=== PATIENT | male | born 1945 | race Hispanic/Latino ===

== ENCOUNTER → 2017-04-03 | Outpatient (CLI) | payer OTHER ==
[~2017-04-03] MED LIST: AMLO2.5T PO; ASPI-1181 PO; BRIM5DRO4 OU; CARV25TA PO; CHOL378P PO; CLOP75TA32 PO; ENAL20TA PO; EZET10 PO; FISH1CAP49 PO; ISOS60TA4 PO; LATA2.5D2 OU; LEVO75TA10 PO; PANT40TA25 PO; TYL3 PO
== END ==
LOC: SHCH 11:57
PROVIDERS: ATTEND Internal Medicine Cardiovascular Disease
DX: I50.9 Heart failure, unspecified (principal)
CPT/HCPCS: 93306

== ENCOUNTER → 2018-09-15 | Outpatient (CLI) | payer OTHER ==
[~2018-09-15] VITALS: Ht 170.2 cm; Wt 101.2 kg
[~2018-09-15] MED LIST changes: -AMLO2.5T PO; +AMLO2.5T4 PO; -EZET10 PO; +EZET10TA13 PO; +REGADENOSON 0.4 MG/5 ML PF SYG IVP SCH
== END | disposition home or self-care (01) ==
LOC: SHCH 08:11
PROVIDERS: ATTEND Internal Medicine Cardiovascular Disease
DX: I25.89 Other forms of chronic ischemic heart disease (principal); I21.19 ST elevation (STEMI) myocardial infarction involving other coronary artery of inferior wall
CPT/HCPCS: 78452; 93017; 96374; A9500 ×2; J2785

== ENCOUNTER 2019-02-20 05:47 | Day surgery (SDC) | payer OTHER ==
[2019-02-17 09:13] VITALS: BP 124/67
[2019-02-17 09:27] LABS: BASOPHILS % (AUTO) 0.1 % (0.0-5.0); EOSINOPHILS % (AUTO) 15.6 % (0.0-8.0); HEMATOCRIT 39.2 % (42-54); LYMPHOCYTES % (AUTO) 20.9 % (21.0-51.0); MEAN CORPUSCULAR HEMOGLOBIN 32.1 pg (27.0-33.0); MEAN CORPUSCULAR HGB CONC 32.4 g/dL (32.0-36.0); MONOCYTES % (AUTO) 7.8 % (3.0-13.0); NEUTROPHILS % (AUTO) 55.5 % (40.0-77.0); PLATELET COUNT (AUTO) 157 K/uL (130-400); RED BLOOD CELL COUNT(AUTO) 3.96 MIL/uL (4.50-6.20); RED CELL DISTRIBUTION WIDTH 12.3 % (11.0-15.5); WHITE BLOOD COUNT (AUTO) 7.2 K/uL (4.8-10.8)
[2019-02-17 09:31] LABS: APPEARANCE,URINE Clear (CLEAR); BILIRUBIN,URINE Negative (NEGATIVE); COLOR,URINE Yellow (YELLOW); GLUCOSE, URINE (UA) Negative (NEGATIVE); KETONES,URINE Negative (NEGATIVE); LEUKOCYTE ESTERASE ,URINE Negative (NEGATIVE); NITRATE,URINE Negative (NEGATIVE); OCCULT BLOOD,URINE Negative (NEGATIVE); PH,URINE 5.5 (5.0-8.0); PROTEIN,URINE Negative (NEGATIVE)
[2019-02-17 09:36] LABS: CREATININE 1.4 mg/dL (0.5-1.5); POTASSIUM 4.4 mmol/L (3.5-5.1)
[2019-02-17 09:45] LABS: INR 1.07 (0.85-1.15); PARTIAL THROMBOPLASTIN TIME 28.2 SEC (26.3-35.5); PROTHROMBIN TIME 11.2 SEC (9.6-11.6)
--- NOTE | 2019-02-19 10:43 | NUR ---
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 NO NEW ORDERS RECEIVED, ALREADY HAS IV HYDRATION ORDERED.
[~2019-02-20] VITALS: Ht 168.9 cm; Wt 102.1 kg
[2019-02-20] VITALS (11 sets, daily range): BP systolic 126–163; BP diastolic 66–82
[~2019-02-20 05:47] MED LIST changes: -AMLO2.5T4 PO; -ENAL20TA PO; -FISH1CAP49 PO; +NITR0.4T50 SL; +OLME20TA22 PO; +PHARMACY COMMUNICATION MISC SCH; +RANO10004 PO; -REGADENOSON 0.4 MG/5 ML PF SYG IVP SCH; -TYL3 PO
[2019-02-20] MEDS ORDERED: NITROGLYCERIN 5 MG/ML 10 ML VIAL IV ONE (07:09)
[2019-02-20] MEDS ORDERED: IOHEXOL 350 MG/ML 100ML INFUS..BTL IV ONE (07:09)
[2019-02-20] MEDS ORDERED: LIDOCAINE HCL 2% 20ML ONE ×3 (07:09→07:57)
[2019-02-20] MEDS ORDERED: HEPARIN SODIUM 1000UNIT/ML 10ML VIAL ONE (07:09)
[2019-02-20] MEDS ORDERED: IOHEXOL-350 50ML VIAL IV ONE ×2 (07:11→08:27)
[2019-02-20] MEDS ORDERED: MIDAZOLAM HCL 1 MG/ML 2ML VIAL ONE ×2 (07:11→07:48)
[2019-02-20] MEDS ORDERED: SODIUM CHLORIDE 0.9% 500ML 500 ML IV SCH (07:30)
[2019-02-20] MEDS ORDERED: SODIUM CHLORIDE 0.9% 1000ML 1,000 ML IV ONE (07:39)
== END 2019-02-20 14:05 | disposition home or self-care (01) ==
LOC: DAH 05:47
PROVIDERS: ATTEND Internal Medicine Cardiovascular Disease
DX: I25.10 Atherosclerotic heart disease of native coronary artery without angina pectoris (principal); E78.5 Hyperlipidemia, unspecified; K21.9 Gastro-esophageal reflux disease without esophagitis; N18.3 Chronic kidney disease, stage 3 (moderate); E03.9 Hypothyroidism, unspecified; I25.5 Ischemic cardiomyopathy; Z79.82 Long term (current) use of aspirin; Z79.899 Other long term (current) drug therapy; Z98.890 Other specified postprocedural states; Z95.1 Presence of aortocoronary bypass graft; Z87.891 Personal history of nicotine dependence; Z83.3 Family history of diabetes mellitus; Z82.49 Family history of ischemic heart disease and other diseases of the circulatory system; Z79.01 Long term (current) use of anticoagulants
CPT/HCPCS: 36415; 71045; 80048; 81003; 85025; 85610; 85730; 93005; 93459; 96360; A4216; A4222; A4223 ×3; A4606; A4663; C1760; C1894 ×2; J1644 ×2; J2250 ×2; J3490 ×3; J7030; Q9965; Q9967 ×3; 99156; 99157